=== PATIENT | female | born 1935 | race African-American/Black ===

== ENCOUNTER 2016-03-11 10:40 | Emergency (ER) | payer MEDICARE, MEDICAID ==
[~2016-03-11] VITALS: Ht 160 cm; Wt 59.0 kg
[2016-03-11 10:50] VITALS: BP 139/79
[2016-03-11 10:57] LABS: DIFF TOTAL % 100 %; EOSINOPHILS # (AUTO) 0.1 /CMM (0.0-0.7); EOSINOPHILS % (AUTO) 1.5 % (0.0-6.0); HEMATOCRIT 37 % (33-45); HEMOGLOBIN 12.4 g/dL (11.5-14.8); LYMPHOCYTES % (AUTO) 27.3 % (20.0-44.0); MEAN CORPUSCULAR HEMOGLOBIN 30 PG (26.0-33.0); MEAN CORPUSCULAR HGB CONC 33 g/dl (31.0-36.0); MEAN CORPUSCULAR VOLUME 90 fL (82-100); MONOCYTES # (AUTO) 0.2 /CMM (0.1-1.30); MONOCYTES % (AUTO) 5.8 % (2.0-12.0); NEUTROPHILS # (AUTO) 2.4 /CMM (1.8-8.9); NEUTROPHILS % (AUTO) 64.4 % (43.0-81.0); PLATELET COUNT (AUTO) 181 /CMM (150-450); RED BLOOD CELL COUNT(AUTO) 4.14 MIL/uL (4.0-5.2); WHITE BLOOD COUNT (AUTO) 3.8 K/uL (4.3-11.0)
[2016-03-11 11:08] LABS: ANION GAP 11 (5-14); CALCIUM, SERUM 8.3 mg/dL (8.5-10.1); CARBON DIOXIDE 30 mmol/L (21-32); CHLORIDE 105 mmol/L (98-107); GLUCOSE 164 mg/dL (74-106); POTASSIUM 3.9 mmol/L (3.5-5.1); SODIUM SERUM 142 mmol/L (136-145); UREA NITROGEN, BLOOD 14 mg/dL (7-18)
[2016-03-11 11:11] LABS: INR 0.99 (0.87-1.13); PROTHROMBIN TIME 10.7 SECS (9.5-12.7)
[2016-03-11 11:13] LABS: ALANINE AMINOTRANSFERASE 145 U/L (12-78); ALBUMIN 3.2 g/dL (3.4-5.0); ASPARTATE AMINOTRANSFERASE 103 U/L (15-37); BILIRUBIN,TOTAL 0.1 mg/dL (0.2-1.0); INDIRECT BILIRUBIN 0.1 mg/dL (0.0-1.1); TOTAL PROTEIN, SERUM 7.1 g/dL (6.4-8.2); TROPONIN I < 0.017 ng/mL (0.00-0.056)
[2016-03-11] MEDS ORDERED: RISP25DI IM (11:33)
[2016-03-11] MEDS ORDERED: AMIN30LI4 PO (11:33)
[2016-03-11] MEDS ORDERED: ACET-868 PO (11:33)
[2016-03-11] MEDS ORDERED: MAGN400O6 PO (11:33)
[2016-03-11] MEDS ORDERED: LIDOCAINE HCL/PF 1% 30 ML VIAL TP ONE (14:00)
[2016-03-11] MEDS ORDERED: TDAP [DIPH/PERTUSSIS/TET] 0.5 ML VIAL IM ONE (14:00)
== END 2016-03-11 14:24 | disposition short-term general hospital (02) ==
LOC: ER 10:42
DX: R55 Syncope and collapse (principal); S01.511A Laceration without foreign body of lip, initial encounter; I10 Essential (primary) hypertension; F03.90 Unspecified dementia, unspecified severity, without behavioral disturbance, psychotic disturbance, mood disturbance, and anxiety; J44.9 Chronic obstructive pulmonary disease, unspecified; K21.9 Gastro-esophageal reflux disease without esophagitis; F20.9 Schizophrenia, unspecified; X58.XXXA Exposure to other specified factors, initial encounter; Y93.9 Activity, unspecified; Y92.9 Unspecified place or not applicable; Y99.9 Unspecified external cause status
CPT/HCPCS: 36415; 70450; 70486; 71010; 72125; 80048; 80076; 84484; 85025; 85730; 93005; 99285; A4606; A6402; J3490; Z7610

== ENCOUNTER 2021-09-28 14:28 | Inpatient (IN) | payer MEDICARE, OTHER ==
[~2021-09-28] VITALS: Ht 157.5 cm; Wt 50.3 kg
[~2021-09-28 14:28] MED LIST: ACET-868 PO; AMIN30LI4 PO; MAGN400O6 PO; RISP25DI IM
--- NOTE | 2021-09-28 14:44 | NUR ---
TO ER BED 8, PAULINA FROM [facility] FOR COVID+ RESULT TODAY AND INCREASED CONFUSION, HX OF DEMENTIA, AAOX2, BREATHING EVEN AND NON LABORED, CONNECTED TO MONITOR, AWAITING MD ORDERS
--- NOTE | 2021-09-28 15:50 | NUR ---
CALLED DR. SILVA, IS NOT GYMNASIUM TEACHER AND [facility] WILL BE SEEING THE PATIENT.
[2021-09-28 16:20] LABS: BASOPHILS % (AUTO) 1.3 % (0.0-2.0); EOSINOPHILS % (AUTO) 2.5 % (0.0-6.0); HEMATOCRIT 39 % (33-45); HEMOGLOBIN 12.6 g/dL (11.5-14.8); LYMPHOCYTES # (AUTO) 1.5 K/uL (0.8-4.8); LYMPHOCYTES % (AUTO) 45.9 % (20.0-44.0); MEAN CORPUSCULAR HGB CONC 33 g/dl (31.0-36.0); MEAN CORPUSCULAR VOLUME 91 fL (82-100); MONOCYTES # (AUTO) 0.5 K/uL (0.1-1.30); MONOCYTES % (AUTO) 13.8 % (2.0-12.0); NEUTROPHILS # (AUTO) 1.2 K/uL (1.8-8.9); NEUTROPHILS % (AUTO) 36.5 % (43.0-81.0); PLATELET COUNT (AUTO) 181 K/uL (150-450); RED BLOOD CELL COUNT(AUTO) 4.24 MIL/uL (4.0-5.2); WHITE BLOOD COUNT (AUTO) 3.3 K/uL (4.3-11.0)
[2021-09-28 16:26] LABS: CALCIUM, SERUM 8.3 mg/dL (8.5-10.1); CARBON DIOXIDE 30 mmol/L (21-32); CHLORIDE 105 mmol/L (98-107); CREATININE 0.8 mg/dL (0.6-1.3); GLUCOSE 107 mg/dL (74-106); POTASSIUM 3.7 mmol/L (3.5-5.1); SODIUM SERUM 138 mmol/L (136-145); UREA NITROGEN, BLOOD 13 mg/dL (7-18)
[2021-09-28 16:32] LABS: ALANINE AMINOTRANSFERASE 32 U/L (12-78); ALKALINE PHOSPHATASE 58 U/L (46-116); ASPARTATE AMINOTRANSFERASE 19 U/L (15-37); BILIRUBIN,TOTAL 0.2 mg/dL (0.2-1.0)
--- NOTE | 2021-09-28 16:39 | NUR ---
Kaden cazares in [facility] - 09/28/21 at 1705 by AMOR REPORT GIVEN TO SKYLAR MCNEIL NEHEMIAS
--- NOTE | 2021-09-28 17:04 | NUR ---
URINE COLLECTED AND SENT TO LAB
[2021-09-28 17:05] LABS: BILIRUBIN,DIRECT 0.1 mg/dL (0.0-0.2)
[2021-09-28 17:57] LABS: BILIRUBIN,URINE NEGATIVE (NEGATIVE); COLOR,URINE YELLOW (YELLOW); LEUKOCYTE ESTERASE ,URINE NEGATIVE (NEGATIVE); NITRITE, URINE NEGATIVE (NEGATIVE); PROTEIN,URINE NEGATIVE (NEGATIVE); UGLUCOSE NEGATIVE (NEGATIVE); UROBILINOGEN,URINE 0.2 EU/dL (0.2)
[2021-09-28 18:03] LABS: BACTERIA,URINE None seen /HPF (None Seen); SQUAMOUS EPITHELIAL CELL,UR 0-2 /HPF (None Seen); WBC,URINE 0-2 /HPF (0-3)
--- NOTE | 2021-09-28 19:29 | NUR ---
[facility] PAGED
--- NOTE | 2021-09-28 22:11 | NUR ---
CALLED [facility], WILL CALL BACK FOR INFO ON SENDING PT BACK
--- NOTE | 2021-09-28 22:19 | NUR ---
[facility] ADMIT COORDINATOR [phone]
--- NOTE | 2021-09-28 22:45 | NUR ---
RN NOTES RECEIVED ER ADMISSION REPORT FROM MICHAELA SEGOVIA. ALL PERTINENT ADMISSION INFO REGARDING PT NOTED. WILL WAIT FOR PT TO BE TRANSFERRED TO UNIT AND ADDRESS NEEDS ACCORDINGLY. LIFT MECHANIC MADE AWARE.
--- NOTE | 2021-09-28 22:48 | NUR ---
REPORT GIVEN TO MICHAELA REYES
[2021-09-28] MEDS ORDERED: DEXTROSE 50%-WATER 50 ML DISP.SYRIN IV PRN (23:00)
[2021-09-28] MEDS ORDERED: INSULIN REGULAR, HUMAN 100 UNIT/ML 3 ML VIAL SQ PRN (23:00)
[2021-09-28] MEDS ORDERED: MAGNESIUM HYDROXIDE 30 ML UDC PO PRN (23:00)
[2021-09-28] MEDS ORDERED: HYDROCODONE/APAP 5/325MG TABLET PO PRN (23:00)
[2021-09-28] MEDS ORDERED: ONDANSETRON HCL/PF 4 MG/2 ML VIAL IVP PRN (23:00)
[2021-09-28] MEDS ORDERED: ACETAMINOPHEN 325 MG TABLET PO PRN (23:00)
[2021-09-28] MEDS ORDERED: Z GUARD REMEDY 4 OZ OINT TP PRN (23:00)
--- NOTE | 2021-09-28 23:35 | NUR ---
RN NOTES RECEIVED PT FROM ER VIA [facility] ACCOMPANIED BY 2 ER STAFF AND TRANSFERRED TO BED VIA 2 PERSON ASSIST. PT IS A/OX1-2; ON ROOM AIR WITH RESPIRATIONS EVEN AND UNLABORED. COMPREHENSIVE PHYSICAL ASSESSMENT AND PATIENT CARE DONE. CALL LIGHT WITHIN REACH, SAFETY MEASURES AND ISOLATION PRECAUTION IN PLACE, WILL CONTINUE MONITOR AND ASSESS THROUGHOUT THE SHIFT. WILL CARRY OUT MD ORDERS ACCORDINGLY. GROUP COUNSELOR MADE AWARE.
--- NOTE | 2021-09-28 23:37 | NUR ---
PATIENT TRANSFERRED, VSS.
[2021-09-29] MEDS: ENOXAPARIN SODIUM 40 MG/0.4 ML DISP.SYRIN SQ SCH ×3 (00:25→09:47)
[2021-09-29 04:00] VITALS: BP 143/76
--- NOTE | 2021-09-29 04:00 | NUR ---
RN NOTES PATIENT REMAINED TO BE IN NO SIGNS OF ACUTE RESPIRATORY DISTRESS, SAFE ENVIRONMENT MAINTAINED FOR PT. AM PATIENT CARE DONE. WILL CONTINUE TO MONITOR AND REASSESS FOR ANY CHANGES THROUGHOUT THE SHIFT.
--- NOTE | 2021-09-29 06:40 | NUR ---
RN CLOSING NOTE: PATIENT REMAINS IN ROOM IN NO SIGNS OF RESPIRATORY DISTRESS, PATIENT STILL ON ROOM AIR;TOLERATING WELL SATURATING @ >95% SP02. MED SURG STATUS. ON DROPLET PREC. FOR CASE MGT ARRANGEMENT FOR PLACEMENT PER MD NOTES. SAFETY MEASURES IMPLEMENTED, BED IN LOWEST POSITION, LOCKED, SIDE RAILS UP, CALL LIGHT WITHIN REACH. ALL NEEDS AND ORDERS ADDRESSED DURING THE SHIFT. IV ACCESS MAINTAINED INTACT, SECURED AND FLUSHING WELL. ALL DUE MEDS GIVEN ORDERED & SCHEDULED ; PATIENT TOLERATED WELL. PATIENT KEPT CLEAN AND COMFORTABLE WITHIN THE SHIFT. PATIENT ENDORSED TO INCOMING SHIFT RN WITH STABLE VITAL SIGN AND FOR CONTINUITY OF CARE.
--- NOTE | 2021-09-29 07:42 | NUR ---
LARYNGOLOGIST OPENING NOTE PATIENT IS IN BED. PATIENT IS RESTING COMFORTABLY. PATIENT HAS NO SIGNS OF PAIN. PATIENT REMAINS IN ROOM AIR.PATIENT TOLERATING WELL ON ROOM AIR. PATIENT IS ALERT AND ORIENTED X1-2. PATIENT IS ON CONSISTENT CARB DIET. PATIENT HAS LEFT FOREARM 20 GAUGE. ALL SAFETY MEASURES IN PLACE. CALL LIGHT WITHIN REACH. BEDSIDE TABLE NEXT TO PATIENT.BED LOCKED AND IN LOWEST POSITION. WILL CONTINUE TO MONITOR THROUGHOUT SHIFT.
[2021-09-29] MEDS: BLOOD SUGAR DIAGNOSTIC 1 EACH STRIP IN SCH ×4 (07:53→22:12)
[2021-09-29] MEDS: PANTOPRAZOLE 40 MG TABLET.DR PO SCH (07:55)
[2021-09-29 08:00] VITALS: BP 141/75
[2021-09-29 08:06] LABS: BASOPHILS % (AUTO) 1.4 % (0.0-2.0); EOSINOPHILS % (AUTO) 3.8 % (0.0-6.0); HEMATOCRIT 37 % (33-45); HEMOGLOBIN 12.4 g/dL (11.5-14.8); LYMPHOCYTES # (AUTO) 2.1 K/uL (0.8-4.8); LYMPHOCYTES % (AUTO) 59.1 % (20.0-44.0); MEAN CORPUSCULAR HGB CONC 33 g/dl (31.0-36.0); MEAN CORPUSCULAR VOLUME 90 fL (82-100); MONOCYTES # (AUTO) 0.4 K/uL (0.1-1.30); MONOCYTES % (AUTO) 11.2 % (2.0-12.0); NEUTROPHILS # (AUTO) 0.9 K/uL (1.8-8.9); NEUTROPHILS % (AUTO) 24.5 % (43.0-81.0); PLATELET COUNT (AUTO) 190 K/uL (150-450); RED BLOOD CELL COUNT(AUTO) 4.15 MIL/uL (4.0-5.2); WHITE BLOOD COUNT (AUTO) 3.5 K/uL (4.3-11.0)
[2021-09-29 08:39] LABS: CALCIUM, SERUM 8.3 mg/dL (8.5-10.1); CREATININE 0.7 mg/dL (0.6-1.3); MAGNESIUM 1.8 mg/dL (1.8-2.4); POTASSIUM 3.6 mmol/L (3.5-5.1)
[2021-09-29] MEDS: PROSOURCE / PROSTAT (PYXIS) 30 ML UDC PO SCH (09:47)
[2021-09-29] MEDS ORDERED: BISA10SU11 RC (10:03)
[2021-09-29] MEDS ORDERED: NA P133E RC (10:03)
[2021-09-29] MEDS ORDERED: METF-440 PO (10:03)
--- NOTE | 2021-09-29 11:10 | NUR ---
telecommunicator note patient refusing lovenox. explained benefits and provided education on medication. patient still refused medications
--- NOTE | 2021-09-29 16:56 | NUR ---
telephone operator receptionist note BS [id number] no coverage BS [id number] no coverage BS [id number] no coverage
[2021-09-29 18:00] VITALS: BP 120/70
--- NOTE | 2021-09-29 18:30 | NUR ---
spoke with pharmacy to find out when last risperidone was taken. if patient doesnt remember, ask family member. will endorse to nursing teacher
--- NOTE | 2021-09-29 18:31 | NUR ---
APPLICATIONS TESTER CLOSING NOTE PATIENT IS IN BED. PATIENT IS RESTING COMFORTABLY. PATIENT HAS NO SIGNS OF PAIN. PATIENT REMAINS ON ROOM AIR.PATIENT TOLERATING WELL ON ROOM AIR. PATIENT IS ALERT AND ORIENTED X1-2. PATIENT IS CONFUSED. PATIENT IS ON CONSISTENT CARB DIET. PATIENT HAS LEFT FOREARM 20 GAUGE. IV PATENT AND FLUSHING WELL. PATIENT IS AMBULATORY. ALL SAFETY MEASURES IN PLACE. CALL LIGHT WITHIN REACH. BEDSIDE TABLE NEXT TO PATIENT.BED LOCKED AND IN LOWEST POSITION.
[2021-09-29 20:00] VITALS: BP 154/74
--- NOTE | 2021-09-29 23:50 | NUR ---
RN NOTE CALLED [facility] FOR [facility] ADMINISTRATION [facility] RISPERIDONE D/T MED RECON ORDER FOR QMONTH. LAST DOSE WAS 09/03/2021.
[2021-09-30 04:00] VITALS: BP 149/67
--- NOTE | 2021-09-30 06:48 | NUR ---
RN CLOSING NOTE MAINTAINED COVID ISOLATION. A/OX1-2, CONFUSED. TOLERATING ROOM AIR. NO RESPIRATORY DISTRESS. NO COMPLAINTS OF PAIN. BLOOD SUGAR MONITORED. [facility] TO [facility]M [facility]IENT LAST DOSE OF RESPIRIDINE WAS 09/03/21. WILL INFORM AM SHIFT TO HAVE MD DO MED RECON. PENDING CM FOR PLACEMENT.
[2021-09-30] MEDS: PANTOPRAZOLE 40 MG TABLET.DR PO SCH ×2 (07:30→07:43)
--- NOTE | 2021-09-30 07:39 | NUR ---
DEPUTY SHERIFF GENERALIST/BAILIFF OPENING NOTE PATIENT IS IN BED. PATIENT IS AWAKE, ALERT AND ORIENTED X1-2. PATIENT SHOWS SIGNS OF CONFUSION. PATIENT IS RESTING COMFORTABLY. PATIENT HAS NO SIGNS OF PAIN. PATIENT REMAINS ON ROOM AIR.PATIENT TOLERATING WELL ON ROOM AIR. PATIENT IS CONFUSED. PATIENT IS ON CONSISTENT CARB DIET. PATIENT HAS LEFT FOREARM 20 GAUGE. IV PATENT AND FLUSHING WELL. PATIENT IS AMBULATORY. ALL SAFETY MEASURES IN PLACE. CALL LIGHT WITHIN REACH. BED ALARM ON BEDSIDE TABLE NEXT TO PATIENT.BED LOCKED AND IN LOWEST POSITION.WILL CONTINUE TO ASSESS THROUGHOUT SHIFT
[2021-09-30] MEDS: BLOOD SUGAR DIAGNOSTIC 1 EACH STRIP IN SCH ×2 (07:43→12:15)
[2021-09-30 08:00] VITALS: BP 150/77
[2021-09-30] MEDS: PROSOURCE / PROSTAT (PYXIS) 30 ML UDC PO SCH (09:00)
[2021-09-30] MEDS: ENOXAPARIN SODIUM 40 MG/0.4 ML DISP.SYRIN SQ SCH (09:00)
--- NOTE | 2021-09-30 09:12 | NUR ---
spoke with MD about patient's condition. patient refusing medications after explaining the benefits of the medication.
[2021-09-30 14:51] LABS: BASOPHILS % (AUTO) 0.6 % (0.0-2.0); EOSINOPHILS % (AUTO) 5.6 % (0.0-6.0); HEMATOCRIT 41 % (33-45); HEMOGLOBIN 13.5 g/dL (11.5-14.8); LYMPHOCYTES % (AUTO) 61.2 % (20.0-44.0); MEAN CORPUSCULAR HGB CONC 33 g/dl (31.0-36.0); MEAN CORPUSCULAR VOLUME 91 fL (82-100); MONOCYTES # (AUTO) 0.3 K/uL (0.1-1.30); MONOCYTES % (AUTO) 9.8 % (2.0-12.0); NEUTROPHILS # (AUTO) 0.7 K/uL (1.8-8.9); NEUTROPHILS % (AUTO) 22.8 % (43.0-81.0); PLATELET COUNT (AUTO) 203 K/uL (150-450); RED BLOOD CELL COUNT(AUTO) 4.57 MIL/uL (4.0-5.2); WHITE BLOOD COUNT (AUTO) 3.2 K/uL (4.3-11.0)
--- NOTE | 2021-09-30 15:01 | NUR ---
called [facility] to give report on patient. nurse jaime barriga will give me call back. transport is here
[2021-09-30 15:17] LABS: CALCIUM, SERUM 8.6 mg/dL (8.5-10.1); CREATININE 0.8 mg/dL (0.6-1.3); POTASSIUM 3.7 mmol/L (3.5-5.1)
--- NOTE | 2021-09-30 15:35 | NUR ---
[facility]
[2021-09-30 15:36] LABS: PHOSPHORUS 3.4 mg/dL (2.5-4.9)
[2021-10-03] MEDS ORDERED: RISPERIDONE MICROSPHERES 25 MG INJ SCH (09:00)
== END 2021-09-30 15:30 | DRG 177 ==
LOC: ER 14:52 → TELE1 23:25 → MEDSG1 09-29 05:41
PROVIDERS: ADMIT Internal Medicine; ATTEND Student in an Organized Health Care Education/Training Program
DX: U07.1 COVID-19 (principal); G93.41 Metabolic encephalopathy; E44.1 Mild protein-calorie malnutrition; J98.11 Atelectasis; E11.51 Type 2 diabetes mellitus with diabetic peripheral angiopathy without gangrene; I10 Essential (primary) hypertension; I08.1 Rheumatic disorders of both mitral and tricuspid valves; J44.9 Chronic obstructive pulmonary disease, unspecified; K21.9 Gastro-esophageal reflux disease without esophagitis; F20.9 Schizophrenia, unspecified; J32.9 Chronic sinusitis, unspecified; J30.9 Allergic rhinitis, unspecified; Z79.899 Other long term (current) drug therapy; E83.51 Hypocalcemia; E88.09 Other disorders of plasma-protein metabolism, not elsewhere classified; F03.90 Unspecified dementia, unspecified severity, without behavioral disturbance, psychotic disturbance, mood disturbance, and anxiety
CPT/HCPCS: 36415; 71045-TC; 80048-TC; 80076-TC; 81001; 82962-TC; 83735-TC; 84100-TC; 85025-TC; 87081-TC; 97116-TC; 97530-TC; C9803; G0378; J1650; J1815

== ENCOUNTER 2022-03-16 17:48 | Emergency (ER) | payer MEDICARE, OTHER ==
[~2022-03-16] VITALS: Ht 157.5 cm; Wt 59.0 kg
[~2022-03-16 17:48] MED LIST changes: -AMIN30LI4 PO; +BISA10SU11 RC; +METF-440 PO; +NA P133E RC
--- NOTE | 2022-03-16 18:15 | NUR ---
BIOLOGY RESEARCH ASSISTANT AT BEDSIDE
[2022-03-16 18:49] LABS: ALANINE AMINOTRANSFERASE 23 U/L (12-78); ALBUMIN 3.2 g/dL (3.4-5.0); ALKALINE PHOSPHATASE 63 U/L (46-116); ASPARTATE AMINOTRANSFERASE 18 U/L (15-37); BILIRUBIN,DIRECT 0.1 mg/dL (0.0-0.2); BILIRUBIN,TOTAL 0.2 mg/dL (0.2-1.0); CALCIUM, SERUM 8.9 mg/dL (8.5-10.1); CARBON DIOXIDE 31 mmol/L (21-32); CHLORIDE 101 mmol/L (98-107); CREATININE 1.3 mg/dL (0.6-1.3); GLUCOSE 113 mg/dL (74-106); POTASSIUM 4.1 mmol/L (3.5-5.1); SODIUM SERUM 136 mmol/L (136-145); TOTAL PROTEIN, SERUM 7.3 g/dL (6.4-8.2); UREA NITROGEN, BLOOD 23 mg/dL (7-18)
[2022-03-16 19:09] LABS: ALCOHOL, BLOOD < 3 mg/dL (0-0)
--- NOTE | 2022-03-16 19:27 | NUR ---
[facility] FOR COVID19 SENT TO LAB
--- NOTE | 2022-03-16 20:02 | NUR ---
URINE COLLECTED AND SENT TO LAB
[2022-03-16 20:13] LABS: BASOPHILS % (AUTO) 0.8 % (0.0-2.0); EOSINOPHILS % (AUTO) 2.5 % (0.0-6.0); HEMATOCRIT 40 % (33-45); HEMOGLOBIN 13.3 g/dL (11.5-14.8); LYMPHOCYTES # (AUTO) 1.5 K/uL (0.8-4.8); MEAN CORPUSCULAR HGB CONC 33 g/dl (31.0-36.0); MEAN CORPUSCULAR VOLUME 92 fL (82-100); MONOCYTES # (AUTO) 0.4 K/uL (0.1-1.30); MONOCYTES % (AUTO) 6.5 % (2.0-12.0); NEUTROPHILS # (AUTO) 3.4 K/uL (1.8-8.9); NEUTROPHILS % (AUTO) 62.2 % (43.0-81.0); PLATELET COUNT (AUTO) 239 K/uL (150-450); WHITE BLOOD COUNT (AUTO) 5.5 K/uL (4.3-11.0)
[2022-03-16 22:21] LABS: BILIRUBIN,URINE NEGATIVE (NEGATIVE); COLOR,URINE YELLOW (YELLOW); LEUKOCYTE ESTERASE ,URINE 1+ (NEGATIVE); NITRITE, URINE NEGATIVE (NEGATIVE); PROTEIN,URINE NEGATIVE (NEGATIVE); UGLUCOSE NEGATIVE (NEGATIVE); UROBILINOGEN,URINE 0.2 EU/dL (0.2)
[2022-03-16 22:24] LABS: BACTERIA,URINE 2+ /HPF (None Seen); MUCUS,URINE Few /LPF (None Seen)
[2022-03-16] MEDS ORDERED: CEPHALEXIN MONOHYDRATE 500 MG CAPSULE PO ONE ×2 (23:00→23:04)
[2022-03-16] MEDS ORDERED: CEPH500C2 PO (23:04)
--- NOTE | 2022-03-16 23:10 | NUR ---
[facility] CALLED [phone] MINS ETA
--- NOTE | 2022-03-16 23:48 | NUR ---
report given to ramila francisco
--- NOTE | 2022-03-17 00:44 | NUR ---
[facility] AT BEDSIDE FOR TRANSPORT TO [facility]
[2022-03-17 02:05] VITALS: BP 121/78
== END 2022-03-17 02:06 ==
LOC: ER 17:54
DX: N39.0 Urinary tract infection, site not specified (principal); R41.0 Disorientation, unspecified; Z20.822 Contact with and (suspected) exposure to COVID-19; F03.90 Unspecified dementia, unspecified severity, without behavioral disturbance, psychotic disturbance, mood disturbance, and anxiety; J44.9 Chronic obstructive pulmonary disease, unspecified; K21.9 Gastro-esophageal reflux disease without esophagitis; F20.9 Schizophrenia, unspecified; Z59.01 Sheltered homelessness; I10 Essential (primary) hypertension; I08.1 Rheumatic disorders of both mitral and tricuspid valves; R00.0 Tachycardia, unspecified; J32.9 Chronic sinusitis, unspecified; Z79.899 Other long term (current) drug therapy
CPT/HCPCS: 36415; 70450-TC; 80048-TC; 80076-TC; 81001; 85025-TC; 87086-TC; C9803; G0480